=== PATIENT | female | born 1975 | race Caucasian/White ===

== ENCOUNTER 2018-08-02 18:05 | Emergency (ER) | payer BC ==
--- NOTE | 2018-08-02 18:41 | ERPHSYRPT ---
- History of Present Illness Time Seen by Provider: 08/02/18 18:36 Source: patient, family Exam Limitations: no limitations Patient Subjective Stated Complaint: PT FELL OFF STOOL TODAY WHILE CLEANING Triage Nursing Assessment: PT PAIN TO LEFT ARM,FROM ELBOW TO HAND, STRONG RADIAL PULSE, NIAL BEDS PINK , NO LOC Physician History: pt fell while cleaning and has pain left elbow/forarm and hand including snuff box; neuro vasc intact , tendon fxn intact nontender full ROM shoulder and elbow but tender prx ulna ; no other c/u injury and other exts all with full rom and no pain; chest and abd nontender. Occurred: just prior to arrival Method of Injury: fell Quality: constant, sharpness Severity of Pain-Max: moderate Severity of Pain-Current: moderate Extremities Pain Location: elbow: left, forearm: left, wrist: left, hand: left, thumb: left Modifying Factors: Improves With: immobilization, movement Associated Symptoms: none Allergies/Adverse Reactions: Sulfa (Sulfonamide Antibiotics) Allergy (Verified 08/02/18 18:25) Home Medications: No Reportable Medications [No Reported Medications] 08/02/18 [History] Hx Tetanus, Diphtheria Vaccination/Date Given: No Hx Influenza Vaccination/Date Given: No Hx Pneumococcal Vaccination/Date Given: No Immunizations Up to Date: Yes - Review of Systems Constitutional: No Fever, No Chills Eyes: No Symptoms Ears, Nose, & Throat: No Symptoms Respiratory: No Cough, No Dyspnea Cardiac: No Chest Pain, No Edema, No Syncope Abdominal/Gastrointestinal: No Abdominal Pain, No Nausea, No Vomiting, No Diarrhea Genitourinary Symptoms: No Dysuria Musculoskeletal: Fall, Injury, Joint Pain, No Back Pain, No Neck Pain Skin: No Rash Neurological: No Dizziness, No Focal Weakness, No Sensory Changes Psychological: No Symptoms Endocrine: No Symptoms All Other Systems: Reviewed and Negative - Past Medical History Pertinent Past Medical History: No - Past Surgical History Past Surgical History: Yes Female Surgical History: Other - Social History Smoking Status: Never smoker Exposure to second hand smoke: No Drug Use: none Patient Lives Alone: No - Female History Hx Last Menstrual Period: NOW Hx Now: No - Nursing Vital Signs Nursing Vital Signs: Initial Vital Signs Temperature 97.6 F 08/02/18 18:21 Pulse Rate 90 08/02/18 18:21 Respiratory Rate 16 08/02/18 18:21 Blood Pressure 130/80 08/02/18 18:21 O2 Sat by Pulse Oximetry 100 08/02/18 18:21 Pain Scale Pain Intensity 6 - Physical Exam General Appearance: alert Eyes, Ears, Nose, Throat Exam: moist mucous membranes Neck Exam: non-tender, supple Cardiovascular/Respiratory Exam: chest non-tender, normal breath sounds, regular rate/rhythm, no respiratory distress Abdominal Exam: non-tender, No guarding Back Exam: normal inspection, No vertebral tenderness Shoulder Exam: normal inspection, non-tender, no evidence of injury, normal ROM Elbow/Forearm Exam: bone tenderness, soft tissue tenderness Wrist Exam: bone tenderness, limited ROM, pain, soft tissue tenderness Hand Exam: limited ROM, soft tissue tenderness, swelling DTR - Upper Extremity Exam: bicep (R): 2+, bicep (L): 2+, tricep (R): 2+, tricep (L): 2+ Neuro/Tendon Exam: normal sensation, normal motor functions, normal tendon functions Mental Status Exam: alert, oriented x 3, cooperative Skin Exam: normal color, warm, dry SpO2 Interpretation: normal SpO2: 100 Oxygen Delivery: Room Air Procedures - Splinting Location of Splint: Left, Wrist, Forearm, Elbow Type of Splint: Other (thumb spica also) Splint Applied By: ED Nurse Pre-Proc Neuro Vasc Exam: normal Post-Proc Neuro Vasc Exam: neurovascular intact, unchanged from pre-exam - Course Nursing assessment & vital signs reviewed: Yes - Radiology Exams Left Wrist X-ray Interpretation: Reviewed by me, Other (suspicious for schaphoid nondisplaced) Left Forearm X-ray Interpretation: Reviewed by me, Other (suspicious at radial head and distal radius in lateral , but not seen in AP) Ordered Tests: Active Orders 24 hr Category Date Time Status FOREARM Stat Exams 08/02/18 18:42 Taken HAND (MINIMUM 3 VIEWS) Stat Exams 08/02/18 18:43 Taken WRIST (MIN 3 VIEWS) Stat Exams 08/02/18 18:44 Taken - Progress Progress: improved, re-examined Progress Note: 08/02/18 19:59 discussed imaging with pt and spouse and that occult fractures are likely and will splint and have f/u with PCP and further w/u as symptoms dictate this week. pt declines pain meds at this time; Counseled pt/family regarding: diagnosis, need for follow-up, rad results - Departure Time of Disposition: 18:38 Departure Disposition: Home Clinical Impression: Closed fracture of distal pole of scaphoid bone of left wrist, Left radial head fracture Condition: Good Critical Care Time: No Referrals: SHARONA RIOS [Primary Care Provider] - Instructions: Wrist Fracture (DC), Common Wrist Injuries (DC), Radius Fracture (DC), Elbow Fracture (DC) Additional Instructions: we are providing instructions for wrist scaphoid navicular fracture, radial head and radius, even though we cannot confirm these fractures at this time; use the splints and followup with your Dr for further evaluation - a further scan or repeat x-ray may later confirm fractures, or an MRI may find ligament injuries; return meantime if increased pain , numbness , increased swelling or other concerns.
[2018-08-02 19:03] VITALS: BP 113/85; PULSE 94
[2018-08-02 19:31] VITALS: O2SAT 100
--- NOTE | 2018-08-02 22:19 | XRAY ---
Indication: Pain following fall. Comparison: None 2 views of the left forearm obtained. No bony, articular, or soft tissue abnormalities.
--- NOTE | 2018-08-02 22:20 | XRAY ---
Indication: Pain following fall. Comparison: None 3 views of the left wrist obtained. No bony, articular, or soft tissue abnormalities.
--- NOTE | 2018-08-02 22:20 | XRAY ---
Indication: Pain following fall. Comparison: None 3 views of the left wrist obtained. No bony, articular, or soft tissue abnormalities.
== END 2018-08-02 20:53 | disposition home or self-care (01) ==
LOC: ED 18:05
PROC: 2W39X1Z Immobilization of Left Upper Extremity using Splint (ICD-10-PCS; principal; 2018-08-02)
DX: S62.012A Displaced fracture of distal pole of navicular [scaphoid] bone of left wrist, initial encounter for closed fracture (principal); W08.XXXA Fall from other furniture, initial encounter; Y93.E9 Activity, other interior property and clothing maintenance; Y92.019 Unspecified place in single-family (private) house as the place of occurrence of the external cause
CPT/HCPCS: 29105; 73090; 73110; 73130; 99284